=== PATIENT | male | born 1950 | race Caucasian/White ===

== ENCOUNTER 2016-10-16 13:17 | Day surgery (SDC) | payer OTHER ==
[~2016-10-16] VITALS: Ht 182.9 cm; Wt 80.4 kg
[2016-10-16 14:18] VITALS: BP 126/87; PULSE 86; RESP 18; TEMP 98.2; O2SAT 96
[2016-10-16] MEDS ORDERED: ASPI81CH PO (14:22)
[2016-10-16] MEDS ORDERED: MICR12.5 PO (14:22)
[2016-10-16] MEDS ORDERED: AMLO5CAP3 PO (14:22)
[2016-10-16 14:28] LABS: AUTOMATED NEUTROPHIL # 4.8 TH/MM3 (1.8-7.7); BASOPHIL # 0.1 TH/MM3 (0-0.2); BASOPHIL % 0.9 % (0.0-2.0); EOSINOPHIL # 0.1 TH/MM3 (0-0.4); EOSINOPHIL % 0.9 % (0.0-4.0); HEMATOCRIT 51.9 % (39.0-51.0); HEMO FLAGS DIFF FINAL; LYMPH % 20.9 % (9.0-44.0); LYMPHOCYTE # 1.4 TH/MM3 (1.0-4.8); MEAN CORPUSCULAR HEMOGLOBIN 32.3 PG (27.0-34.0); MONO % 8.4 % (0.0-8.0); NEUT % 68.9 % (16.0-70.0); PLATELET COUNT 270 TH/MM3 (150-450); RED BLOOD COUNT 5.46 MIL/MM3 (4.50-5.90); RED CELL DISTRIBUTION WIDTH 14.4 % (11.6-17.2); WHITE BLOOD COUNT 6.9 TH/MM3 (4.0-11.0)
[2016-10-16] MEDS ORDERED: HEPARIN SODIUM - IV 10,000 UNITS/10 ML VIAL ONE (14:30)
[2016-10-16 14:34] LABS: APTT (PATIENT) 27.9 SEC (24.3-30.1); PROTHROMBIN TIME - PATIENT 11.5 SEC (9.8-11.6)
[2016-10-16 14:43] LABS: BICARBONATE 25.8 MEQ/L (21.0-32.0); POTASSIUM 3.9 MEQ/L (3.5-5.1)
[2016-10-16] MEDS ORDERED: SODIUM BICARBONATE 100 MEQ in D5W 1000 ML IV SCH (15:00)
[2016-10-16] MEDS ORDERED: MIDAZOLAM HCL 5 MG/ML VIAL (1 ML) ONE (15:01)
[2016-10-16] MEDS ORDERED: PROTAMINE SULFATE 50 MG/5 ML VIAL ONE (16:59)
[2016-10-16] MEDS ORDERED: CLOPIDOGREL 75 MG TAB ONE (17:29)
[2016-10-16] MEDS ORDERED: MISC INFORMATION XX ONE (17:45)
[2016-10-16] MEDS ORDERED: MORPHINE SULFATE 4 MG/ML INJ IV PUSH PRN (17:45)
[2016-10-16] MEDS ORDERED: ACETAMINOPHEN 325 MG TAB PO PRN (17:45)
[2016-10-16] MEDS ORDERED: oxyCODONE/ACETAMINOPHEN 10 MG/325 MG TAB PO PRN (17:45)
[2016-10-16] MEDS ORDERED: oxyCODONE/ACETAMINOPHEN 5 MG/325 MG TAB PO PRN (17:45)
[2016-10-16] MEDS ORDERED: PLAV75TA29 PO (19:07)
--- NOTE | 2016-10-17 09:11 | MA ---
cc: CHANEL SOTO DO DATE: 10/16/2016 PREOPERATIVE DIAGNOSIS Lifestyle limiting claudication of right lower extremity POSTOPERATIVE DIAGNOSIS Lifestyle limiting claudication of right lower extremity PROCEDURE 1. Selective right lower extremity arteriogram. 2. Rechanneling of right superficial femoral artery. 3. Balloon angioplasty and selective stenting of the right superficial femoral extending to the popliteal artery above knee. SURGEON Jefferson Soto, FLUIDS IV fluids 1 liter crystalloid ESTIMATED BLOOD LOSS Minimal URINE OUTPUT Not calculated. COMPLICATIONS None DISPOSITION To PACU PROCEDURE IN DETAIL The patient's bilateral groins were prepped and draped in sterile fashion. I got access to the left common femoral artery using duplex ultrasound with a 21 gauge needle. I advanced an Omni flush catheter over a stiff angled Glidewire into the right common femoral artery and I shot a selective right lower extremity arteriogram. My findings were that the right common femoral and profunda femoral arteries were widely patent. 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 The right popliteal artery appeared to be patent. The right anterior tibial arteries and the peroneal arteries with the right main runoff to the right lower extremity. We did heparinize the patient to an ACT of greater than 100. I used a stiff angled Glidewire, a grand slam wire and a quick catheter in order to cross antegrade. I was unable to get across the right SFA lesion so the I went retrograde under direct fluoroscopic guidance and entered the right anterior tibial artery. I advanced a stiff angled Glidewire and exchanged for a 5-Grenadian sheath and a quick cross catheter. I was able to get in from below and then I snared my stiff angled Glidewire and brought it across the left side. I then exchanged and worked from the antegrade direction. I performed balloon angioplasty with a 4 mm balloon of the right SFA across to the right popliteal artery. It should be noted that subsequently I used multiple Zilver PDX stents including two 120 x 6, a 100 x 6 and an 80 x 6 mm drug-eluting stents. It should be noted that there were additional stents needed as I think for subintimal dissections in both directions. At the end of the procedure, there was brisk flow through the right superficial femoral artery and popliteal artery with two-vessel runoff through the anterior tibial and peroneal arteries. I then made sure that we gave approximately 40 of protamine and p.o. Plavix at the end of the case. We did exchange for a 6-Grenadian Angio-Seal in the left groin and then applied pressure to the right yang below the level of the knee after we removed the 5-Grenadian sheath. The patient tolerated the procedure well and was taken to the PACU at the end of the case. DO ALEXSANDER Michel/ /5:36 PM /9:00 AM MTDSeth
== END 2016-10-16 21:38 | disposition home or self-care (01) ==
LOC: HSDC 13:17 → HDIC 13:18 → HSDC 21:38
PROVIDERS: ATTEND Surgery
DX: I73.9 Peripheral vascular disease, unspecified (principal); M79.89 Other specified soft tissue disorders; I10 Essential (primary) hypertension; Z01.818 Encounter for other preprocedural examination
CPT/HCPCS: 37226; 75710; 80048; 85002; 85025; 85610; 85730; C1769; G0269; J2250; J2720; J3010; J1644

== ENCOUNTER 2017-03-25 11:51 | Emergency (ER) | payer OTHER ==
[~2017-03-25] VITALS: Ht 182.9 cm; Wt 76.6 kg
[~2017-03-25 11:51] MED LIST: AMLO5CAP3 PO; ASPI-516 PO; MICR12.5 PO; PLAV75TA29 PO
[2017-03-25 12:14] VITALS: BP 113/62; PULSE 74; RESP 16; TEMP 97.5; O2SAT 97
--- NOTE | 2017-03-25 12:35 | PD ---
HPI Chief Complaint: Dizziness Time Seen by Provider: 12:23 Travel History International Travel<30 days: No Contact w/Intl Traveler<30days: No Traveled to known affect area: No History of Present Illness HPI This 66-year-old male says he was sitting at his desk when he had a sudden onset of lightheadedness. He then vomited several times. He did not have vertigo. He has not had any diarrhea. He has a history of hypertension. He has had a stent placed in the legs and is on Plavix. He had some pressure in his forehead during the symptoms which has been fairly persistent. He does not describe this headache says that he had a similar episode to this 2 weeks ago. He laid down and rested and felt better when he got up. The patient has been seeing an ENT doctor at [facility], [place]. He apparently has a cyst around his right ear which has been eating into the bone. There is been some talk of gluing this area. The patient was due to have it done in February but backed out. He had gone to ENT because he had a loss of hearing in his right ear. He has not had any tinnitus PFSH Past Medical History Hx Anticoagulant Therapy: Yes Cancer: No Cardiovascular Problems: Yes (htn on meds) Chest Pain: No Diabetes: No Diminished Hearing: Yes Endocrine: No Gastrointestinal Disorders: Yes Glaucoma: No Genitourinary: No Hepatitis: No Hiatal Hernia: No Hypertension: Yes Immune Disorder: No Musculoskeletal: No Neurologic: No Psychiatric: No Reproductive: No Respiratory: No Integumentary: No Immunizations Current: No Thyroid Disease: No Past Surgical History Abdominal Surgery: No AICD: No Cardiac Surgery: No Ear Surgery: No Endocrine Surgery: No Eye Surgery: No Genitourinary Surgery: No Gynecologic Surgery: No Joint Replacement: No Oral Surgery: No Pacemaker: No Thoracic Surgery: No Other Surgery: Yes (HERNIA REPAIR 20 YEARS AGO) Social History Alcohol Use: Yes (occasional alcohol use, no alcohol the last 6 weeks) Tobacco Use: Yes (occasional cigars) Substance Use: No Allergies-Medications (Allergen,Severity, Reaction): Coded Allergies: penicillin G (Unverified Allergy, Severe, Anaphylaxis, 03/25/17) Reported Meds & Prescriptions Reported Meds & Active Scripts Active Reported Plavix (Clopidogrel Bisulfate) 75 Mg Tab 75 Mg PO DAILY Aspirin 81 Mg Chew 81 Mg PO DAILY Microzide (Hydrochlorothiazide) 12.5 Mg Cap 12.5 Mg PO DAILY Amlodipine-Benazepril 5-20 Mg Cap 1 Cap PO DAILY Review of Systems General / Constitutional: No: Fever, Chills Eyes: No: Diploplia HENT: Positive: Headaches Cardiovascular: No: Chest Pain or Discomfort, Palpitations Respiratory: No: Cough, Shortness of Breath Gastrointestinal: Positive: Vomiting Genitourinary: No: Urgency, Frequency Musculoskeletal: No: Myalgias Skin: No Rash, No Itching Neurologic: Positive: Weakness, No: Dizziness, Syncope, Focal Abnormalities Endocrine: No: Heat Intolerance Hematologic/Lymphatic: No: Easy Bruising Physical Exam Narrative GENERAL: Well-developed male SKIN: Focused skin assessment warm/dry. HEAD: Atraumatic. Normocephalic. EYES: Pupils equal and round. No scleral icterus. No injection or drainage. ENT: No nasal bleeding or discharge. Mucous membranes pink and moist. NECK: Trachea midline. No JVD. CARDIOVASCULAR: Regular rate and rhythm. No murmur appreciated. RESPIRATORY: No accessory muscle use. Clear to auscultation. Breath sounds equal bilaterally. GASTROINTESTINAL: Abdomen soft, non-tender, nondistended. Hepatic and splenic margins not palpable. MUSCULOSKELETAL: No obvious deformities. No clubbing. No cyanosis. No edema. NEUROLOGICAL: Awake and alert. No obvious cranial nerve deficits. Motor grossly within normal limits. Normal speech. PSYCHIATRIC: Appropriate mood and affect; insight and judgment normal. Data Data Last Documented VS Vital Signs Date Time Temp Pulse Resp B/P (MAP) Pulse Ox O2 Delivery O2 Flow Rate FiO2 03/25/17 13:44 86 18 116/86 (96) 97 Room Air 03/25/17 12:14 97.5 Orders Orders Electrocardiogram (03/25/17 12:31) Complete Blood Count With Diff (03/25/17 12:31) Basic Metabolic Panel (Bmp) (03/25/17 12:31) Ct Brain W/O Iv Contrast(Rout) (03/25/17 12:31) Sodium Chlor 0.9% 1000 Ml Inj (Ns 1000 M (03/25/17 12:45) Ondansetron Inj (Zofran Inj) (03/25/17 12:45) Labs Laboratory Tests Test 03/25/17 12:40 White Blood Count 14.9 TH/MM3 Red Blood Count 5.60 MIL/MM3 Hemoglobin 17.6 GM/DL Hematocrit 52.0 % Mean Corpuscular Volume 92.7 FL Mean Corpuscular Hemoglobin 31.5 PG Mean Corpuscular Hemoglobin Concent 34.0 % Red Cell Distribution Width 13.7 % Platelet Count 218 TH/MM3 Mean Platelet Volume 7.0 FL Neutrophils (%) (Auto) 92.0 % Lymphocytes (%) (Auto) 3.6 % Monocytes (%) (Auto) 3.5 % Eosinophils (%) (Auto) 0.3 % Basophils (%) (Auto) 0.6 % Neutrophils # (Auto) 13.8 TH/MM3 Lymphocytes # (Auto) 0.5 TH/MM3 Monocytes # (Auto) 0.5 TH/MM3 Eosinophils # (Auto) 0.0 TH/MM3 Basophils # (Auto) 0.1 TH/MM3 CBC Comment DIFF FINAL Differential Comment Blood Urea Nitrogen 16 MG/DL Creatinine 0.89 MG/DL Random Glucose 117 MG/DL Calcium Level 8.3 MG/DL Sodium Level 138 MEQ/L Potassium Level 3.6 MEQ/L Chloride Level 103 MEQ/L Carbon Dioxide Level 25.5 MEQ/L Anion Gap 10 MEQ/L Estimat Glomerular Filtration Rate 85 ML/MIN MDM Medical Decision Making Medical Screen Exam Complete: Yes Emergency Medical Condition: Yes Medical Record Reviewed: Yes Differential Diagnosis Differential includes vertigo, dysrhythmia, electrolyte imbalance. Dehydration Narrative Course Lab work is unremarkable. Patient has been given IV fluids and some Zofran and is feeling better. He wonders if this may be related to this cyst she has on the year. I'm not sure. He does not describe vertigo. I have recommended he follow up with the [facility]inal[facility] throat doctor at [facility] Primary Impression: Lightheadedness Disposition: DISCHARGE HOME Condition: Stable Favian Mansfield MD Mar 25, 2017 12:34
[2017-03-25] MEDS ORDERED: SODIUM CHLOR 0.9% 1000 ML INJ 1,000 ML IV ONE (12:45)
[2017-03-25] MEDS ORDERED: ONDANSETRON HCL 4 MG/2 ML VIAL IV PUSH ONE (12:45)
[2017-03-25 13:05] LABS: AUTOMATED NEUTROPHIL # 13.8 TH/MM3 (1.8-7.7); BASOPHIL # 0.1 TH/MM3 (0-0.2); BASOPHIL % 0.6 % (0.0-2.0); EOSINOPHIL % 0.3 % (0.0-4.0); HEMO FLAGS DIFF FINAL; LYMPH % 3.6 % (9.0-44.0); LYMPHOCYTE # 0.5 TH/MM3 (1.0-4.8); MEAN CELL VOLUME 92.7 FL (80.0-100.0); MEAN CORPUSCULAR HEMOGLOBIN 31.5 PG (27.0-34.0); MONO % 3.5 % (0.0-8.0); PLATELET COUNT 218 TH/MM3 (150-450); RED CELL DISTRIBUTION WIDTH 13.7 % (11.6-17.2); WHITE BLOOD COUNT 14.9 TH/MM3 (4.0-11.0)
[2017-03-25 13:18] LABS: POTASSIUM 3.6 MEQ/L (3.5-5.1)
[2017-03-25 13:21] LABS: BICARBONATE 25.5 MEQ/L (21.0-32.0)
--- NOTE | 2017-03-25 13:25 | RADRPT ---
EXAM DATE/TIME: 03/25/2017 13:12 [facility] COMPARISON: No previous studies available for comparison. INDICATIONS : Light headed and head pressure. RADIATION DOSE: 66.04 CTDIvol (mGy) MEDICAL HISTORY : Hypertension. SURGICAL HISTORY : None. ENCOUNTER: Initial ACUITY: 1 day PAIN SCALE: 2/10 LOCATION: cranial TECHNIQUE: Multiple contiguous axial images were obtained of the head. Using automated exposure control and adj ustment of the mA and/or kV according to patient size, radiation dose was kept as low as reasonably a chievable to obtain optimal diagnostic quality images. DICOM format image data is available electro nically for review and comparison. FINDINGS: CEREBRUM: The ventricles are normal for age. No evidence of midline shift, mass lesion, hemorrhage or acute in farction. No extra-axial fluid collections are seen. POSTERIOR FOSSA: The cerebellum and brainstem are intact. The 4th ventricle is midline. The cerebellopontine angle i s unremarkable. EXTRACRANIAL: The visualized portion of the orbits is intact. Fluid in the right mastoid air cells. SKULL: The calvaria is intact. No evidence of skull fracture. CONCLUSION: 1. No acute intracranial abnormality. 2. Fluid in right mastoid air cells which can be seen with mastoiditis in the right clinical setting. Abner Pan MD on March 25, 2017 at 13:22 Board Certified Radiologist. This report was verified electronically.
[2017-03-25 13:44] VITALS: BP 116/86; PULSE 86; RESP 18; O2SAT 97
--- NOTE | 2017-03-26 14:00 | EKG ---
Date Performed: 03/25/2017 Time Performed: 12:44:19 PTAGE: 66 years EKG: Sinus rhythm NONSPECIFIC T-WAVE ABNORMALITY ABNORMAL ECG Compared to prior tracing no significant change PREVIOUS TRACING : 01/08/2016 09.57 DOCTOR: Chiquis Hernandez Interpretating Date/Time 03/26/2017 13:59:10
== END 2017-03-25 14:29 | disposition home or self-care (01) ==
LOC: PHED 11:51
DX: R42 Dizziness and giddiness (principal); I10 Essential (primary) hypertension; Z72.0 Tobacco use; Z79.02 Long term (current) use of antithrombotics/antiplatelets
CPT/HCPCS: 70450; 80048; 85025; 93005; 96361; 96374; 99285; J2405; J7030

== ENCOUNTER 2017-06-25 06:20 | Inpatient (IN) | payer MEDICARE, OTHER ==
[2017-06-25] VITALS (13 sets, daily range): BP systolic 109–118; BP diastolic 71–85; PULSE 79–97; RESP 14–19; TEMP 98–98.1; O2SAT 95–99
--- NOTE | 2017-06-25 06:28 | PD ---
HPI Chief Complaint: Tongue swelling Time Seen by Provider: 06:24 Travel History International Travel<30 days: No Contact w/Intl Traveler<30days: No Traveled to known affect area: No History of Present Illness HPI Patient states unknown what may have triggered it but patient developed a swollen tongue, and difficulty speaking because of how swollen the tongue was. Patient also is denies any shortness of breath currently. Denies any wheezing at this current time as well. No alleviating or aggravating factors. Patient denies any associated factors such as rash, fever, neck stiffness, headache, chest pain, abdominal pain, back pain. Allergy to penicillin Patient has past medical history significant for hypertension, ulcerated esophagus, hernia repair, stents on lower legs, PFSH Past Medical History Hx Anticoagulant Therapy: Yes Cancer: No Cardiovascular Problems: Yes (htn on meds) Chest Pain: No Diabetes: No Diminished Hearing: Yes Endocrine: No Gastrointestinal Disorders: Yes (ULCERATED ESOPHAGUS) Glaucoma: No Genitourinary: No Hepatitis: No Hiatal Hernia: No Hypertension: Yes Immune Disorder: No Musculoskeletal: No Neurologic: No Psychiatric: No Reproductive: No Respiratory: No Integumentary: No Immunizations Current: No Thyroid Disease: No Past Surgical History Abdominal Surgery: No AICD: No Cardiac Surgery: No Ear Surgery: No Endocrine Surgery: No Eye Surgery: No Genitourinary Surgery: No Gynecologic Surgery: No Joint Replacement: No Oral Surgery: No Pacemaker: No Thoracic Surgery: No Other Surgery: Yes (HERNIA REPAIR STENTS LOWER LEGS) Social History Alcohol Use: Yes (occasional alcohol use, ) Tobacco Use: Yes (occasional cigars) Substance Use: No Allergies-Medications (Allergen,Severity, Reaction): Coded Allergies: penicillin G (Verified Allergy, Severe, Anaphylaxis, 06/25/17) Reported Meds & Prescriptions Reported Meds & Active Scripts Active Reported Meclizine (Meclizine HCl) 12.5 Mg Tab 12.5 Mg PO TID PRN Aspirin 81 Mg Chew 81 Mg PO DAILY Microzide (Hydrochlorothiazide) 12.5 Mg Cap 12.5 Mg PO DAILY Amlodipine-Benazepril 5-20 Mg Cap 1 Cap PO DAILY Review of Systems General / Constitutional: No: Fever Eyes: No: Visual changes HENT: Positive: Other (Tongue swelling) Cardiovascular: No: Chest Pain or Discomfort Respiratory: No: Shortness of Breath Gastrointestinal: No: Abdominal Pain Genitourinary: No: Dysuria Musculoskeletal: No: Pain Skin: No Rash Neurologic: No: Weakness Psychiatric: No: Depression Endocrine: No: Polydipsia Hematologic/Lymphatic: No: Easy Bruising Physical Exam Narrative GENERAL: SKIN: Warm and dry. HEAD: Atraumatic. Normocephalic. EYES: Pupils equal and round. No scleral icterus. No injection or drainage. ENT: No nasal bleeding or discharge. Mucous membranes pink and moist. Tongue is diffusely erythematous and enlarged however the patient is still able to open mouth and the base of the uvula is partially seen this is the equivalent of a Mallampati 3, no uvular edema noted, no lip edema, NECK: Trachea midline. No JVD. No stridor CARDIOVASCULAR: Regular rate and rhythm. RESPIRATORY: No accessory muscle use. Clear to auscultation. Breath sounds equal bilaterally. No wheezing GASTROINTESTINAL: Abdomen soft, non-tender, nondistended. Hepatic and splenic margins not palpable. MUSCULOSKELETAL: Extremities without clubbing, cyanosis, or edema. No obvious deformities. NEUROLOGICAL: Awake and alert. No obvious cranial nerve deficits. Motor grossly within normal limits. Five out of 5 muscle strength in the arms and legs. Normal speech. PSYCHIATRIC: Appropriate mood and affect; insight and judgment normal. Data Data Last Documented VS Vital Signs Date Time Temp Pulse Resp B/P (MAP) Pulse Ox O2 Delivery O2 Flow Rate FiO2 06/25/17 07:00 93 18 109/71 (84) 98 06/25/17 06:51 Room Air Orders Orders Ecg Monitoring (06/25/17 06:24) Iv Access Insert/Monitor (06/25/17 06:24) Oximetry (06/25/17 06:24) Diphenhydramine Inj (Benadryl Inj) (06/25/17 06:30) Methylprednisolone So Succ Inj (Solumedr (06/25/17 06:30) Famotidine Inj (Pepcid Inj) (06/25/17 06:30) Sodium Chloride 0.9% Flush (Ns Flush) (06/25/17 06:30) Epinephrine (1:1000) Inj (Adrenalin (1:1 (06/25/17 06:30) MDM Medical Decision Making Medical Screen Exam Complete: Yes Emergency Medical Condition: Yes Medical Record Reviewed: Yes Differential Diagnosis Angioedema versus anaphylaxis versus allergic reaction Narrative Course The patient was seen immediately and started on IV, and orders for Solu-Medrol, Pepcid 20 mg, Benadryl, as well as EpiPen Ian. The decision to use EpiPen Jr rather than the full adult doses because the patient has a history of hypertension. Patient is signed out to incoming physician for observation and reevaluation Critical Care Narrative CRITICAL CARE NOTE: With evaluation of the patient, labs, EKG, receipt of radiologic studies, administration of medications, reevaluation the patient and discussion of the patient with the admitting physicians, the total critical care time was [30] minutes. Time to perform other separately billable procedures was not included in the critical care time. Diagnosis Primary Impression: Angioedema Patient Instructions: Angioedema (ED), General Instructions Scripts Famotidine (Pepcid) 40 Mg Tab 40 MG PO DAILY, #7 TAB 0 Refills Prov: Paulino Poole MD 06/25/17 Loratadine (Claritin) 10 Mg Cap 10 MG PO DAILY for Allergy Management, #7 CAP 0 Refills Prov: Paulino Poole MD 06/25/17 Methylprednisolone Dosepak (Medrol Dosepak) 4 Mg Dspk 4 MG PO DIRECTED, #1 DSPK 0 Refills Per Pharmacist direction Prov: Paulino Poole MD 06/25/17 Disposition: 01 DISCHARGE HOME Condition: Stable Paulino Poole MD Jun 25, 2017 06:28
[2017-06-25] MEDS ORDERED: diphenhydrAMINE HCL 50 MG/ML VIAL IVP ONE (06:30)
[2017-06-25] MEDS ORDERED: methylPREDNISolone SOD SUCC 125 MG/2 ML VIAL IV PUSH ONE (06:30)
[2017-06-25] MEDS ORDERED: SODIUM CHLORIDE 0.9% FLUSH 10 ML FLUSH IV FLUSH PRN ×2 (06:30→10:00)
[2017-06-25] MEDS ORDERED: EPINEPHrine HCL (1:1000) 1 MG/ML VIAL IM ONE (06:30)
[2017-06-25] MEDS ORDERED: FAMOTIDINE 20 MG/2 ML VIAL IV PUSH ONE (06:30)
[2017-06-25] MEDS ORDERED: MECL12.574 PO (06:43)
[2017-06-25] MEDS ORDERED: CLAR10CA3 PO (07:05)
[2017-06-25] MEDS ORDERED: FAMO1TAB73 PO (07:05)
[2017-06-25] MEDS ORDERED: MEDR4PAK PO (07:05)
--- NOTE | 2017-06-25 08:48 | PD ---
Data Data Last Documented VS Vital Signs Date Time Temp Pulse Resp B/P (MAP) Pulse Ox O2 Delivery O2 Flow Rate FiO2 06/25/17 08:28 115/75 (88) 99 Nasal Cannula 2.00 06/25/17 07:00 93 18 Orders Orders Ecg Monitoring (06/25/17 06:24) Iv Access Insert/Monitor (06/25/17 06:24) Oximetry (06/25/17 06:24) Diphenhydramine Inj (Benadryl Inj) (06/25/17 06:30) Methylprednisolone So Succ Inj (Solumedr (06/25/17 06:30) Famotidine Inj (Pepcid Inj) (06/25/17 06:30) Sodium Chloride 0.9% Flush (Ns Flush) (06/25/17 06:30) Epinephrine (1:1000) Inj (Adrenalin (1:1 (06/25/17 06:30) Admit Order (Ed Use Only) (06/25/17 08:30) MDM Supervised Visit with MOUNA: No Narrative Course This case was checked out to me at 7 AM. He came in with angioedema and was given some medications. I rechecked him an hour later and he is no better. He is gurgling when he talks. He has a swollen thick tongue. There is a bit of submental edema as well. This is very concerning. I considered intubating him but he would be a very challenging intubation Therefore spoke with the anesthesiologist Dr. Gee who came down to the room and examined the patient. He did not feel the patient required emergent intubation. He felt he would be stable for transfer to the ICU at the [facility]. Both anesthesiologist and myself spoke with commercial print salesman Dr. Gonzales and he accepts the case and we have emergent transfer process. Compensation And Benefits Advisor requested I speak with ENT physician about the case and I have spoken with Dr. Richmond. I rechecked the patient multiple times. He is a complex and challenging case. Medications administered did not help at all Aggregate critical care time was 40 minutes. Time to perform other separately billable procedures was not included in the critical care time. My time did not include minutes spent treating any other patients simultaneously or on activities that did not directly contribute to the patient's treatment. The services I provided to this patient were to treat and/or prevent clinically significant deterioration that could result in: Loss of airway, cardiopulmonary arrest, hypoxemic brain injury I provided critical care services requiring my management, as noted below: Chart data review, documentation time, medication orders and management, vital sign assessments/reviewing monitor data, ordering and reviewing lab tests, ordering and interpreting/reviewing x-rays and diagnostic studies, care of the patient and discussion of the patient with the admitting physicians. I've ordered some baseline labs as I don't think any have been done. Diagnosis Primary Impression: Angioedema Admitting Information Admitting Physician Requests: Admit Scripts Famotidine (Pepcid) 40 Mg Tab 40 MG PO DAILY, #7 TAB 0 Refills Prov: Paulino Poole MD 06/25/17 Loratadine (Claritin) 10 Mg Cap 10 MG PO DAILY for Allergy Management, #7 CAP 0 Refills Prov: Paulino Poole MD 06/25/17 Methylprednisolone Dosepak (Medrol Dosepak) 4 Mg Dspk 4 MG PO DIRECTED, #1 DSPK 0 Refills Per Pharmacist direction Prov: Paulino Poole MD 06/25/17 Jeffery Chirinos MD Jun 25, 2017 08:48
[2017-06-25] MEDS ORDERED: NS + KCL 20 MEQ INJ 1,000 ML IV SCH (09:50)
[2017-06-25] MEDS: RESP: ALBUTEROL 2.5 MG/IPRATROPIUM 0.5 MG NEB (SCH) INH ×3 (10:00→22:23)
[2017-06-25] MEDS ORDERED: ONDANSETRON HCL 4 MG/2 ML VIAL IV PUSH PRN (10:00)
[2017-06-25] MEDS ORDERED: RESP: ALBUTEROL 2.5 MG/IPRATROPIUM 0.5 MG NEB (PRN) INH (10:00)
[2017-06-25] MEDS ORDERED: MAGNESIUM HYDROXIDE SUSP 30 ML CUP PO PRN (10:00)
[2017-06-25] MEDS ORDERED: ACETAMINOPHEN 325 MG TAB PO PRN (10:00)
[2017-06-25] MEDS ORDERED: CHLORHEXIDINE GLUCONATE 2 % 1 PACK (2 CLOTHS) TOP PRN (10:00)
[2017-06-25] MEDS ORDERED: MISCELLANEOUS NURSING INFORMATION XX SCH (10:00)
[2017-06-25] MEDS ORDERED: LACTULOSE SYRUP 20 GM/30 ML CUP PO PRN (10:00)
[2017-06-25] MEDS ORDERED: BISACODYL 10 MG SUPP RECTAL PRN (10:00)
[2017-06-25] MEDS ORDERED: SENNOSIDES 8.6 MG TAB PO PRN (10:00)
--- NOTE | 2017-06-25 10:54 | RADRPT ---
EXAM DATE/TIME: 06/25/2017 10:26 [facility] COMPARISON: No previous studies available for comparison. INDICATIONS : Short of breath due to swollen tongue. Neck inflammation. MEDICAL HISTORY : Hypertension. SURGICAL HISTORY : None. ENCOUNTER: Initial ACUITY: 1 day PAIN SCORE: 0/10 LOCATION: Bilateral chest FINDINGS: A single view of the chest demonstrates the lungs to be symmetrically aerated without evidence of mas s, infiltrate or effusion. The cardiomediastinal contours are unremarkable. Osseous structures are intact. CONCLUSION: No acute disease. Piter Seo MD on June 25, 2017 at 10:52 Board Certified Radiologist. This report was verified electronically.
[2017-06-25] MEDS ORDERED: LABETALOL HCL 100 MG/20 ML VIAL IV PUSH PRN (11:00)
[2017-06-25] MEDS: diphenhydrAMINE HCL 50 MG/ML VIAL IV PUSH SCH ×3 (11:09→21:43)
[2017-06-25] MEDS: DEXAMETHASONE SOD PHOS 20 MG/5 ML VIAL IV PUSH SCH ×2 (11:09→18:30)
--- NOTE | 2017-06-25 11:15 | HHI.HP ---
HPI Service Critical Care Medicine Primary Care Physician Tyler Puente MD Admission Diagnosis severe angioedema Diagnosis: Chief Complaint: Tongue swelling, vertigo, nausea/ vomiting Travel History International Travel<30 Days: No Contact w/Intl Traveler <30 Da: No Traveled to Known Affected Are: No History of Present Illness 66 Year-old male who developed nausea vomiting with dizziness last evening and took meclizine. This morning around 2:30 AM he noticed tongue swelling with difficulty speech hence was brought to the ER by his . She did given Benadryl tablets at home. On evaluation in the ER at [place] he was noted to have significant tongue swelling and was diagnosed to have angioedema. He received IV Solu-Medrol, Benadryl as well as famotidine and epinephrine. He was evaluated by anesthesiologist at [facility] who felt that patient's tongue swelling was going down and he was able to speak significantly better and was seen for transport to the main hospital without intubation. Patient was transferred to [facility] where I evaluated him following his arrival. At that time he was laying in the bed not in any acute distress. He did have some tongue swelling at the time with some submental edema however was able to speak significantly better and felt that his tongue swelling was going down since his arrival to the ER earlier. He does take amlodipine/benazepril for hypertension for years and the benazepril may be what caused angioedema. He also stated that he has been having problems with vertigo with nausea vomiting and dizziness since 4 months. He has had chronic problem with fluid in the right ear for which he previously has been evaluated by specialists. He has not been seen for his vertigo in the last 4 months by any ENT physician and has just been using meclizine off and on as needed. Patient denies any fevers, chills. He recently was treated for respiratory tract infection with Z-Trace and Medrol Dosepak which she finished a few days ago. He is allergic to penicillin which causes tongue swelling however denies having received any penicillin-containing antibiotic. Patient has past medical history significant for hypertension, ulcerated esophagus, hernia repair, stents on lower legs, History PFSH Past Medical History Hx Anticoagulant Therapy: Yes Cancer: No Cardiovascular Problems: Yes (htn on meds) Chest Pain: No Diabetes: No Diminished Hearing: Yes Endocrine: No Gastrointestinal Disorders: Yes (ULCERATED ESOPHAGUS) Glaucoma: No Genitourinary: No Hepatitis: No Hiatal Hernia: No Hypertension: Yes Immune Disorder: No Musculoskeletal: No Neurologic: No Psychiatric: No Reproductive: No Respiratory: No Integumentary: No Immunizations Current: No Thyroid Disease: No Past Surgical History Abdominal Surgery: No AICD: No Cardiac Surgery: No Ear Surgery: No Endocrine Surgery: No Eye Surgery: No Genitourinary Surgery: No Gynecologic Surgery: No Joint Replacement: No Oral Surgery: No Pacemaker: No Thoracic Surgery: No Other Surgery: Yes (HERNIA REPAIR STENTS LOWER LEGS) Social History Alcohol Use: Yes (occasional alcohol use, ) Tobacco Use: Yes (occasional cigars) Substance Use: No Allergies-Medications Allergies-Medications (Allergen,Severity, Reaction): Coded Allergies: penicillin G (Verified Allergy, Severe, Anaphylaxis, 06/25/17) Reported Meds & Prescriptions Reported Meds & Active Scripts Active Reported Meclizine (Meclizine HCl) 12.5 Mg Tab 12.5 Mg PO TID PRN Aspirin 81 Mg Chew 81 Mg PO DAILY Microzide (Hydrochlorothiazide) 12.5 Mg Cap 12.5 Mg PO DAILY Amlodipine-Benazepril 5-20 Mg Cap 1 Cap PO DAILY ROS Review of Systems General / Constitutional: No: Fever Eyes: No: Visual changes HENT: Positive: Other (Tongue swelling) Cardiovascular: No: Chest Pain or Discomfort Respiratory: No: Shortness of Breath Gastrointestinal: No: Abdominal Pain Genitourinary: No: Dysuria Musculoskeletal: No: Pain Skin: No Rash Neurologic: No: Weakness Psychiatric: No: Depression Endocrine: No: Polydipsia Hematologic/Lymphatic: No: Easy Bruising Physical Exam Vital Signs Vital Signs Date Time Temp Pulse Resp B/P (MAP) Pulse Ox O2 Delivery O2 Flow Rate FiO2 06/25/17 08:28 115/75 (88) 99 Nasal Cannula 2.00 06/25/17 08:26 98 2.00 06/25/17 08:26 98 Nasal Cannula 2.00 06/25/17 07:00 93 18 109/71 (84) 98 06/25/17 06:51 97 Room Air 06/25/17 06:45 97 Room Air 06/25/17 06:32 86 113/84 Physical Exam Narrative GENERAL: SKIN: Warm and dry. HEAD: Atraumatic. Normocephalic. EYES: Pupils equal and round. No scleral icterus. No injection or drainage. ENT: No nasal bleeding or discharge. Mucous membranes pink and moist. Tongue is diffusely erythematous and enlarged however the patient is still able to open mouth and the base of the uvula is partially seen this is the equivalent of a Mallampati 3, no uvular edema noted, no lip edema, NECK: Trachea midline. No JVD. No stridor. minimal submandibular swelling in midline. CARDIOVASCULAR: Regular rate and rhythm. RESPIRATORY: No accessory muscle use. Clear to auscultation. Breath sounds equal bilaterally. No wheezing GASTROINTESTINAL: Abdomen soft, non-tender, nondistended. Hepatic and splenic margins not palpable. MUSCULOSKELETAL: Extremities without clubbing, cyanosis, or edema. No obvious deformities. NEUROLOGICAL: Awake and alert. No obvious cranial nerve deficits. Motor grossly within normal limits. Five out of 5 muscle strength in the arms and legs. speech slightly muffled. PSYCHIATRIC: Appropriate mood and affect; insight and judgment normal. Caprini VTE Risk Assessment Caprini VTE Risk Assessment: Mod/High Risk (score >= 2) Caprini Risk Assessment Model Point Value = 1 Point Value = 2 Point Value = 3 Point Value = 5 Age 41-60 Minor surgery BMI > 25 kg/m2 Swollen legs Varicose veins or History of unexplained or recurrent spontaneous Oral contraceptives or hormone replacement Sepsis (< 1 month) Serious lung disease, including pneumonia (< 1 month) Abnormal pulmonary function Acute myocardial infarction Congestive heart failure (< 1 month) History of inflammatory bowel disease Medical patient at bed rest Age 61-74 Arthroscopic surgery Major open surgery (> 45 min) Laparoscopic surgery (> 45 min) Malignancy Confined to bed (> 72 hours) Immobilizing plaster cast Central venous access Age >= 75 History of VTE Family history of VTE Factor V Leiden Prothrombin [id number] Lupus anticoagulant Anticardiolipin antibodies Elevated serum homocysteine Heparin-induced thrombocytopenia Other congenital or acquired thrombophilia Stroke (< 1 month) Elective arthroplasty Hip, pelvis, or leg fracture Acute spinal cord injury (< 1 month) Prophylaxis Regimen Total Risk Factor Score Risk Level Prophylaxis Regimen 0-1 Low Early ambulation 2 Moderate Order ONE of the following: *Sequential Compression Device (SCD) *Heparin 5000 units SQ BID 3-4 Higher Order ONE of the following medications: *Heparin 5000 units SQ TID *Enoxaparin/Lovenox 40 mg SQ daily (WT < 150 kg, CrCl > 30 mL/min) *Enoxaparin/Lovenox 30 mg SQ daily (WT < 150 kg, CrCl > 10-29 mL/min) *Enoxaparin/Lovenox 30 mg SQ BID (WT < 150 kg, CrCl > 30 mL/min) AND/OR *Sequential Compression Device (SCD) 5 or more Highest Order ONE of the following medications: *Heparin 5000 units SQ TID (Preferred with Epidurals) *Enoxaparin/Lovenox 40 mg SQ daily (WT < 150 kg, CrCl > 30 mL/min) *Enoxaparin/Lovenox 30 mg SQ daily (WT < 150 kg, CrCl > 10-29 mL/min) *Enoxaparin/Lovenox 30 mg SQ BID (WT < 150 kg, CrCl > 30 mL/min) AND *Sequential Compression Device (SCD) Assessment and Plan Assessment and Plan 66-year-old male with: Angioedema Hypertension Plan: Admit to ICU - IV Decadron, Benadryl, Pepcid. Bronchodilators every 6 hourly and when necessary. - ENT consult with Dr. Flaherty who was already contacted by ER physician at [facility] prior to patient transfer and will evaluate patient for angioedema as well as for his vertigo. - We will have airway cart and glide scope available at bedside in case patient needs intubation for airway protection if angioedema worsens. - Labetalol when necessary for hypertension. - I informed patient has that I felt that patient's angioedema was possibly related to SEMAJ inhibitor (benazepril) and that he should stay off that medication. - SCDs/Lovenox for DVT prophylaxis Condition critical Time spent on critical care excluding procedures 50 minutes Anastacio Gonzales MD Jun 25, 2017 11:15
[2017-06-25 14:32] LABS: HEMATOCRIT 45.4 % (39.0-51.0); HEMOGLOBIN 15.7 GM/DL (13.0-17.0); MEAN CELL VOLUME 93.7 FL (80.0-100.0); MEAN CORPUSCULAR HEMOGLOBIN 32.4 PG (27.0-34.0); MEAN CORPUSCULAR HGB CONC 34.6 % (32.0-36.0); PLATELET COUNT 307 TH/MM3 (150-450); RED BLOOD COUNT 4.85 MIL/MM3 (4.50-5.90); RED CELL DISTRIBUTION WIDTH 13.6 % (11.6-17.2); WHITE BLOOD COUNT 7.5 TH/MM3 (4.0-11.0)
[2017-06-25 14:43] LABS: ALBUMIN 2.7 GM/DL (3.4-5.0); ALT (GPT) 12 U/L (12-78); AST (GOT) 9 U/L (15-37); BICARBONATE 25.7 MEQ/L (21.0-32.0); BLOOD UREA NITROGEN 16 MG/DL (7-18); CALCIUM 7.8 MG/DL (8.5-10.1); CHLORIDE 109 MEQ/L (98-107); GLOMERULAR FILTRATION RATE 96 ML/MIN (>89); GLUCOSE,RANDOM 133 MG/DL (74-106); SODIUM (NA) 141 MEQ/L (136-145)
[2017-06-25 14:45] LABS: ALKALINE PHOSPHATASE 57 U/L (45-117); TOTAL BILIRUBIN ADULT 0.6 MG/DL (0.2-1.0); TOTAL PROTEIN 6.4 GM/DL (6.4-8.2)
[2017-06-25] MEDS: DEXT 5%-NACL 0.9% 1000 ML INJ 1,000 ML IV SCH (15:45)
[2017-06-25] MEDS ORDERED: IOHEXOL 350 MG/ML 10 ML VIAL (for RAD DIAG) IVCONTRAST ONE (16:16)
--- NOTE | 2017-06-25 16:59 | RADRPT ---
EXAM DATE/TIME: 06/25/2017 16:16 [facility] COMPARISON: No previous studies available for comparison. INDICATIONS : Patient complains of neck swelling. IV CONTRAST: 62 cc Omnipaque 350 (iohexol) IV RADIATION DOSE: 17.67 CTDIvol (mGy) MEDICAL HISTORY : Hypertension. SURGICAL HISTORY : None. ENCOUNTER: Initial ACUITY: 1 day PAIN SCALE: 4/10 LOCATION: neck TECHNIQUE: Volumetric scanning of the neck was performed. Using automated exposure control and adjustment of th e mA and/or kV according to patient size, radiation dose was kept as low as reasonably achievable to obtain optimal diagnostic quality images. DICOM format image data is available electronically for r eview and comparison. FINDINGS: On the first several images through the base of the head there appears to be a aneurysm in the distal right middle cerebral artery measuring up to 7 mm in diameter. There is some stranding of the anterior subcutaneous fat probably representing some inflammatory or e dematous changes. No loculated fluid to suggest abscess. No discrete thyroid masses. No airway obstructing lesions or foreign bodies. No acute bony abnormalit ies. CONCLUSION: 1. Possible 7 mm aneurysm around distal right middle cerebral artery incompletely evaluated. This cou ld be further evaluated with MRA brain. 2. Subcutaneous fat stranding anteriorly and extending into the deeper soft tissues. This could repre sent some edema or inflammatory changes of uncertain etiology. No pathologically enlarged lymph nodes identified. 3. Emphysema at the lung apices. Christopher Alejo MD on June 25, 2017 at 16:44 Board Certified Radiologist. This report was verified electronically.
[2017-06-25] MEDS ORDERED: ENOXAPARIN SODIUM 40 MG/0.4 ML SYRINGE SQ SCH (18:00)
[2017-06-25] MEDS ORDERED: MECLIZINE HCL 25 MG TAB PO PRN (18:30)
[2017-06-25] MEDS: SODIUM CHLORIDE 0.9% FLUSH 10 ML FLUSH IV FLUSH SCH (21:00)
[2017-06-25] MEDS: FAMOTIDINE 20 MG/2 ML VIAL IV PUSH SCH (21:43)
[2017-06-26] VITALS: BP 90/55; PULSE 65; RESP 15; O2SAT 96
[2017-06-26] MEDS: DEXT 5%-NACL 0.9% 1000 ML INJ 1,000 ML IV SCH (00:52)
[2017-06-26 02:00] VITALS: PULSE 66
--- NOTE | 2017-06-26 03:58 | RADRPT ---
EXAM DATE/TIME: 06/26/2017 03:01 [facility] COMPARISON: CHEST SINGLE AP, June 25, 2017, 10:26. INDICATIONS : Evaluate for infiltrates. MEDICAL HISTORY : Hypertension. SURGICAL HISTORY : None. ENCOUNTER: Subsequent ACUITY: 2 days PAIN SCORE: 0/10 LOCATION: Bilateral chest FINDINGS: A single view of the chest demonstrates the lungs to be symmetrically aerated without evidence of mas s, infiltrate or effusion. The cardiomediastinal contours are unremarkable. Osseous structures are intact. CONCLUSION: No acute cardiopulmonary process. No change from prior. Davy Santana MD on June 26, 2017 at 3:56 Board Certified Radiologist. This report was verified electronically.
[2017-06-26 04:00] VITALS: BP 115/77; PULSE 65; RESP 15; TEMP 97.5; O2SAT 96
[2017-06-26] MEDS: RESP: ALBUTEROL 2.5 MG/IPRATROPIUM 0.5 MG NEB (SCH) INH ×2 (04:00→10:00)
[2017-06-26] MEDS ORDERED: CHLORHEXIDINE GLUCONATE 2 % 1 PACK (2 CLOTHS) TOP SCH (04:00)
[2017-06-26] MEDS: diphenhydrAMINE HCL 50 MG/ML VIAL IV PUSH SCH (04:03)
[2017-06-26] MEDS: DEXAMETHASONE SOD PHOS 20 MG/5 ML VIAL IV PUSH SCH (04:04)
[2017-06-26 04:07] LABS: AUTOMATED NEUTROPHIL # 8.7 TH/MM3 (1.8-7.7); BASOPHIL % 0.3 % (0.0-2.0); HEMATOCRIT 42.9 % (39.0-51.0); HEMOGLOBIN 14.7 GM/DL (13.0-17.0); LYMPHOCYTE # 0.5 TH/MM3 (1.0-4.8); MEAN CELL VOLUME 93.5 FL (80.0-100.0); MEAN CORPUSCULAR HGB CONC 34.3 % (32.0-36.0); MEAN PLATELET VOLUME 6.9 FL (7.0-11.0); MONO % 3.4 % (0.0-8.0); MONOCYTE # 0.3 TH/MM3 (0-0.9); NEUT % 91.3 % (16.0-70.0); PLATELET COUNT 304 TH/MM3 (150-450); RED BLOOD COUNT 4.59 MIL/MM3 (4.50-5.90); RED CELL DISTRIBUTION WIDTH 13.6 % (11.6-17.2); WHITE BLOOD COUNT 9.5 TH/MM3 (4.0-11.0)
[2017-06-26 04:30] LABS: ALBUMIN 2.5 GM/DL (3.4-5.0); AST (GOT) 11 U/L (15-37); BICARBONATE 25.2 MEQ/L (21.0-32.0); BLOOD UREA NITROGEN 17 MG/DL (7-18); CHLORIDE 108 MEQ/L (98-107); CREATININE 0.94 MG/DL (0.60-1.30); GLOMERULAR FILTRATION RATE 80 ML/MIN (>89); GLUCOSE,RANDOM 169 MG/DL (74-106); SODIUM (NA) 141 MEQ/L (136-145)
[2017-06-26 04:54] LABS: ALKALINE PHOSPHATASE 54 U/L (45-117); ALT (GPT) 14 U/L (12-78); TOTAL BILIRUBIN ADULT 0.3 MG/DL (0.2-1.0)
[2017-06-26 06:00] VITALS: PULSE 65
[2017-06-26] MEDS: FAMOTIDINE 20 MG/2 ML VIAL IV PUSH SCH (07:40)
[2017-06-26 08:00] VITALS: BP 108/70; PULSE 91; RESP 20; TEMP 98.2; O2SAT 97
[2017-06-26] MEDS ORDERED: amLODIPine BESYLATE 5 MG TAB PO SCH (09:00)
[2017-06-26] MEDS ORDERED: HYDROCHLOROTHIAZIDE 12.5 MG CAP PO SCH (09:00)
[2017-06-26] MEDS: SODIUM CHLORIDE 0.9% FLUSH 10 ML FLUSH IV FLUSH SCH (09:00)
[2017-06-26] MEDS ORDERED: ASPIRIN 81 MG CHEW TAB PO SCH (09:00)
[2017-06-26] MEDS ORDERED: LORATADINE 10 MG TAB PO SCH (09:00)
[2017-06-26 10:00] VITALS: PULSE 86
--- NOTE | 2017-06-26 10:09 | HHI.DS ---
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 This morning around 2:30 AM he noticed tongue swelling with difficulty speech hence was brought to the ER by his . She did given Benadryl tablets at home. On evaluation in the ER at [place] he was noted to have significant tongue swelling and was diagnosed to have angioedema. He received IV Solu-Medrol, Benadryl as well as famotidine and epinephrine. He was evaluated by anesthesiologist at [place] who felt that patient's tongue swelling was going down and he was able to speak significantly better and was seen for transport to the main hospital without intubation. Patient was transferred to [facility] where I evaluated him following his arrival. At that time he was laying in the bed not in any acute distress. He did have some tongue swelling at the time with some submental edema however was able to speak significantly better and felt that his tongue swelling was going down since his arrival to the ER earlier. He does take amlodipine/benazepril for hypertension for years and the benazepril may be what caused angioedema. He also stated that he has been having problems with vertigo with nausea vomiting and dizziness since 4 months. He has had chronic problem with fluid in the right ear for which he previously has been evaluated by specialists. He has not been seen for his vertigo in the last 4 months by any ENT physician and has just been using meclizine off and on as needed. Patient denies any fevers, chills. He recently was treated for respiratory tract infection with Z-Trace and Medrol Dosepak which she finished a few days ago. He is allergic to penicillin which causes tongue swelling however denies having received any penicillin-containing antibiotic. Patient has past medical history significant for hypertension, ulcerated esophagus, hernia repair, stents on lower legs, History PFSH Past Medical History Hx Anticoagulant Therapy: Yes Cancer: No Cardiovascular Problems: Yes (htn on meds) Chest Pain: No Diabetes: No Diminished Hearing: Yes Endocrine: No Gastrointestinal Disorders: Yes (ULCERATED ESOPHAGUS) Glaucoma: No Genitourinary: No Hepatitis: No Hiatal Hernia: No Hypertension: Yes Immune Disorder: No Musculoskeletal: No Neurologic: No Psychiatric: No Reproductive: No Respiratory: No Integumentary: No Immunizations Current: No Thyroid Disease: No Past Surgical History Abdominal Surgery: No AICD: No Cardiac Surgery: No Ear Surgery: No Endocrine Surgery: No Eye Surgery: No Genitourinary Surgery: No Gynecologic Surgery: No Joint Replacement: No Oral Surgery: No Pacemaker: No Thoracic Surgery: No Other Surgery: Yes (HERNIA REPAIR STENTS LOWER LEGS) Social History Alcohol Use: Yes (occasional alcohol use, ) Tobacco Use: Yes (occasional cigars) Substance Use: No Allergies-Medications Allergies-Medications (Allergen,Severity, Reaction): Coded Allergies: penicillin G (Verified Allergy, Severe, Anaphylaxis, 06/25/17) Reported Meds & Prescriptions Reported Meds & Active Scripts Active Reported Meclizine (Meclizine HCl) 12.5 Mg Tab 12.5 Mg PO TID PRN Aspirin 81 Mg Chew 81 Mg PO DAILY Microzide (Hydrochlorothiazide) 12.5 Mg Cap 12.5 Mg PO DAILY Amlodipine-Benazepril 5-20 Mg Cap 1 Cap PO DAILY ROS Review of Systems General / Constitutional: No: Fever Eyes: No: Visual changes HENT: Positive: Other (Tongue swelling) Cardiovascular: No: Chest Pain or Discomfort Respiratory: No: Shortness of Breath Gastrointestinal: No: Abdominal Pain Genitourinary: No: Dysuria Musculoskeletal: No: Pain Skin: No Rash Neurologic: No: Weakness Psychiatric: No: Depression Endocrine: No: Polydipsia Hematologic/Lymphatic: No: Easy Bruising CBC/BMP: 06/26/17 0345 06/26/17 0345 Significant Findings Laboratory Tests Test 06/25/17 11:51 06/25/17 14:08 06/26/17 03:45 Random Glucose 133 MG/DL (74-106) 169 MG/DL (74-106) Albumin 2.7 GM/DL (3.4-5.0) 2.5 GM/DL (3.4-5.0) Calcium Level 7.8 MG/DL (8.5-10.1) 8.0 MG/DL (8.5-10.1) Aspartate Amino Transf (AST/SGOT) 9 U/L (15-37) 11 U/L (15-37) Potassium Level 5.6 MEQ/L (3.5-5.1) Chloride Level 109 MEQ/L (98-107) 108 MEQ/L (98-107) Mean Platelet Volume 6.9 FL (7.0-11.0) Neutrophils (%) (Auto) 91.3 % (16.0-70.0) Lymphocytes (%) (Auto) 5.0 % (9.0-44.0) Neutrophils # (Auto) 8.7 TH/MM3 (1.8-7.7) Lymphocytes # (Auto) 0.5 TH/MM3 (1.0-4.8) Total Protein 6.0 GM/DL (6.4-8.2) Estimat Glomerular Filtration Rate 80 ML/MIN (>89) Imaging CT Head: Possible aneurysm distal right middle cerebral artery. (Patient states he was evaluated for the by a Neurosurgeon in [place], [place] and told it was benign; nothing to worry about.) PE at Discharge Alert, cooperative. Tongue edema completely resolved. Airway widely patent. Normotensive 120s/60s. Transfer Summary Acute angioedema most probably related to benazepril contained in one of his combination BP meds. Listed now as allergy. I have written Norvasc as a separate proscription alone. He has an appointment this afternoon with an ENT physician for followup of his vertigo/right ear fluid problem. I will discuss his CT head findings with one of are local neurosurgeons and let the patient know if he feels differently about how to treat the RCA aneurysm. Hospital Course Angioedema resolved. Pt Condition on Discharge: Good Discharge Disposition: Discharge Home Discharge Instructions DIET: Follow Instructions for: As Tolerated, No Restrictions Additional Information Family physician: Tyler Puente MD. Please send a copy of discharge summary. Dhruv Goodman MD Jun 26, 2017 10:09
[2017-06-26] MEDS ORDERED: AMLO5 PO ×2 (10:20)
[2017-06-27] MEDS ORDERED: amLODIPine BESYLATE 5 MG TAB PO SCH (09:00)
== END 2017-06-26 11:11 | disposition home or self-care (01) | DRG 916 ==
LOC: PHED 06:20 → PHEDA 08:32 → N03B 09:30
PROVIDERS: ADMIT Internal Medicine Critical Care Medicine; ATTEND Internal Medicine Critical Care Medicine
DX: T78.3XXA Angioneurotic edema, initial encounter (principal); I67.1 Cerebral aneurysm, nonruptured; T45.0X5A Adverse effect of antiallergic and antiemetic drugs, initial encounter; R42 Dizziness and giddiness; I10 Essential (primary) hypertension; Z88.0 Allergy status to penicillin; H91.90 Unspecified hearing loss, unspecified ear; Z72.0 Tobacco use
CPT/HCPCS: 70491; 71045; 80053; 85025; 85027; 87641; 96372; 96374; 96375; J0171; J1100; J1200; J1650; J2930; J3480; J7042; Q9967